=== PATIENT | male | born 1985 | race Caucasian/White ===

== ENCOUNTER 2023-01-21 08:25 | Emergency (ER) | payer BC ==
[~2023-01-21] VITALS: Ht 180.3 cm; Wt 80.0 kg
[2023-01-21] MEDS ORDERED: KETOROLAC 60MG/2ML VIAL IM ONE (08:45)
[2023-01-21] MEDS ORDERED: HYDROCODONE/ACETAMINOPHEN 5/325MG TABLET PO ONE (08:45)
[2023-01-21 10:23] LABS: BASOPHILS % 0.5 % (0.0-2.0); EOSINOPHILS % 0.5 % (0.0-5.0); HEMATOCRIT. 41.4 % (42.0-52.0); HEMOGLOBIN. 14.2 g/dL (14.0-18.0); LYMPHOCYTES % 16.3 % (20.0-50.0); MEAN CORPUSCULAR HEMOGLOBIN 28.9 pg (28.0-32.0); MEAN CORPUSCULAR VOLUME 84.1 fL (80.0-94.0); MONOCYTES % 5.8 % (2.0-8.0); NEUTROPHILS % 76.9 % (40.0-76.0); PLATELET 202 x1000/uL (130-400); RED BLOOD CELL COUNT 4.92 mill/uL (4.7-6.1); RED CELL DISTRIBUTION WIDTH 13.6 % (11.6-14.6)
[2023-01-21 10:33] LABS: CHLORIDE 103 mEq/L (98-107)
[2023-01-21 10:51] LABS: PROTHROMBIN TIME 10.9 sec (9.6-11.0)
[2023-01-21] MEDS ORDERED: HYDROCODONE/ACETAMINOPHEN 5/325MG TABLET PO NR (13:00)
[2023-01-21] MEDS ORDERED: KETOROLAC 60MG/2ML VIAL IM NR (13:00)
[2023-01-21 14:42] VITALS: BP 116/76
== END 2023-01-21 14:43 | disposition left against medical advice (07) ==
LOC: ER 08:25 → EDBEDREQ 12:27 → ER 14:43
DX: S72.001A Fracture of unspecified part of neck of right femur, initial encounter for closed fracture (principal); Z20.822 Contact with and (suspected) exposure to COVID-19; V00.131A Fall from skateboard, initial encounter; Y93.89 Activity, other specified; Y92.89 Other specified places as the place of occurrence of the external cause; Y99.8 Other external cause status
CPT/HCPCS: 36415; 72192; 73502; 73552; 80053; 85025; 85610; 86850; 86900; 86901; 87426; 96372; 99285; C9803; J1885; Z7610